=== PATIENT | male | born 1965 | race Caucasian/White ===

== ENCOUNTER 2021-12-01 06:06 | Day surgery (SDC) | payer OTHER ==
[~2021-12-01 06:06] MED LIST: Lactated Ringers 1,000 ML IV SCH
[2021-12-01] MEDS ORDERED: DIPRIVAN 200 MG/20 ML IV ONE (06:47)
[2021-12-01] MEDS ORDERED: Versed 2 MG/2 ML Injection ONE (06:54)
--- NOTE | 2021-12-01 07:30 | PCM.DCORD ---
- Discharge Disposition: Home, Self-Care Condition: Stable Prescriptions: New PANTOPRAZOLE 40 mg Tablet [Protonix 40MG Tablet] 40 mg PO QPM #30 tab Continue Sucralfate 1 gm [Carafate 1 GM] 1 g ACHS Follow up with: LISA MARTINEZ [Primary Care Provider] -
[2021-12-01 08:11] VITALS: BP 113/78; PULSE 57; O2SAT 98
--- NOTE | 2021-12-01 11:00 | OP ---
SURGERY DATE: 12/01/2021 SURGERY TIME: 703 PREOPERATIVE DIAGNOSIS: 1. ABDOMINAL PAIN. 2. DYSPHAGIA. POSTOPERATIVE DIAGNOSIS: 1. MODERATE GASTRITIS. 2. SMALL HIATAL HERNIA. PROCEDURE: 1. EGD. SPECIMENS: 1. Two cold forceps biopsies taken from the gastric antrum. ESTIMATED BLOOD LOSS: Minimal. SURGEON: Dr. Bob Mina. ANESTHESIA: MAC by George Quintana CRNA. DESCRIPTION OF PROCEDURE: After informed written consent was obtained, the patient was taken to the endoscopy suite. A bite block inserted and then anesthesia was titrated to the desired level of consciousness. The endoscope was inserted in the posterior oropharynx and under direct visualization, the esophagus was easily traversed. There was a small hiatal hernia appreciable upon entry into the stomach, but no other mucosal abnormalities in the esophagus. Gastric mucosa had a normal rugated appearance. At the level of the antrum, there were moderate gastritis type changes with 2 small areas of healing inflammation with no active bleeding. The pylorus was traversed and the duodenum had a normal mucosal appearance. Two cold forceps were taken from the gastric antrum sent for H-pylori testing. Again, the small hiatal hernia was appreciable upon withdrawal, but no other mucosal abnormalities. The scope was removed. The patient was transferred to the recovery room in good condition. He will be continued on his Carafate with the addition of proton pump inhibitor and instructions were given to avoid all NSAID's. He will follow-up for pathology results in a week.
== END 2021-12-01 08:10 | disposition home or self-care (01) ==
LOC: SDC 06:06
PROVIDERS: ATTEND Family Medicine
DX: K29.70 Gastritis, unspecified, without bleeding (principal); K44.9 Diaphragmatic hernia without obstruction or gangrene; R10.84 Generalized abdominal pain; R13.10 Dysphagia, unspecified
CPT/HCPCS: J2250; J2704